=== PATIENT | male | born 1975 | race Caucasian/White ===

== ENCOUNTER 2017-10-30 07:46 | Inpatient (IN) | payer OTHER ==
[~2017-10-30] VITALS: Ht 177.8 cm; Wt 99.2 kg
[2017-10-30] MEDS ORDERED: VERA-7 PO (08:01)
[2017-10-30] MEDS ORDERED: LORazepam 2 MG/ML VIAL IVP ONE ×2 (08:15→14:45)
[2017-10-30] MEDS ORDERED: MAGNESIUM SULFATE 2 GM, MVI, ADULT NO.1 WITH VIT K 10 ML, THIAMINE HCL 100 MG, FOLIC AC... IV ONE ×5 (08:15)
[2017-10-30 08:22] LABS: BASOPHILS % (AUTO) 0.9 % (0.0-2.0); EOSINOPHILS % (AUTO) 2.2 % (1.0-6.0); HEMATOCRIT 39.3 % (41-53); HEMOGLOBIN 14.3 g/dL (13.5-17.5); LYMPHOCYTES # (AUTO) 0.5 K/uL (1.0-4.8); LYMPHOCYTES % (AUTO) 11.3 % (22.0-44.0); MEAN CORPUSCULAR HEMOGLOBIN 34.5 pg (26.0-34.0); MEAN CORPUSCULAR HGB CONC 36.5 G/dL (31.0-37.0); MEAN CORPUSCULAR VOLUME 95 fL (80-100); MONOCYTES # (AUTO) 0.5 K/uL (0.1-1.0); MONOCYTES % (AUTO) 10.1 % (2.0-9.0); NEUTROPHILS # (AUTO) 3.7 K/uL (1.8-7.7); NEUTROPHILS % (AUTO) 75.5 % (40.0-70.0); PLATELET COUNT (AUTO) 36 K/uL (150-450); RED BLOOD CELL COUNT(AUTO) 4.16 MIL/uL (4.50-5.90)
[2017-10-30 08:31] LABS: INR 1.1 (0.9-1.1); PROTHROMBIN TIME 11.3 SEC (9.4-11.6)
[2017-10-30 08:32] LABS: ANION GAP 25 mmol/L (8-16); CALCIUM, TOTAL 8.7 mg/dL (8.8-10.5); CARBON DIOXIDE 18 mmol/L (22-29); CHLORIDE 93 mmol/L (98-107); CREATININE 0.79 mg/dL (0.60-1.30); GLOMERULAR FILTR. RATE CALC > 60 mL/min (>60); GLUCOSE,RANDOM 75 mg/dL (70-110); POTASSIUM 3.2 mmol/L (3.5-5.1); SODIUM SERUM 136 mmol/L (136-145); UREA NITROGEN, BLOOD 8 mg/dL (7-18)
[2017-10-30 08:38] LABS: ALANINE AMINOTRANSFERASE 121 U/L (12-78); ALBUMIN 4.1 g/dL (3.4-5.0); ALKALINE PHOSPHATASE 175 U/L (46-116); ASPARTATE AMINOTRANSFERASE 298 U/L (15-37); BILIRUBIN,TOTAL 2.2 mg/dL (0.1-1.0); TOTAL PROTEIN, SERUM 9.1 g/dL (6.4-8.2)
[2017-10-30] MEDS ORDERED: ONDANSETRON HCL 4 MG/2 ML VIAL IVP ONE ×3 (08:45→16:30)
[2017-10-30] MEDS ORDERED: ChlordiazePOXIDE HCL 25 MG CAPSULE PO ONE (13:00)
[2017-10-30] MEDS ORDERED: METOPROLOL TARTRATE 5 MG/5 ML VIAL IVP ONE (14:45)
[2017-10-30 15:14] LABS: LIPASE 505 U/L (73-393)
[2017-10-30 15:34] LABS: ABG A-A DIFF O2 24.8 mmHg (10-20.0); ABG BASE EXCESS -8.4 mmol/L (-2.0-3.0); ABG CARBOXYHEMOGLOBIN 1.8 % (0.0-1.5); ABG METHEMOGLOBIN 0.4 % (0.0-1.5); ABG OXYGEN CONTENT 18.3 mL/dL (15.0-23.0); ABG OXYGEN SATURATION 96.5 % (95.0-98.0); ABG OXYHEMOGLOBIN 94.4 % (94.0-100.0); ABG PCO2 27 mmHg (35-45); ABG PH 7.397 (7.35-7.450); ABG TOTAL HEMOGLOBIN 13.7 G/dL (12.0-18.0); O2 DEVICE,BLOOD GAS ROOM AIR (ROOM AIR); SITE, BLOOD GAS RT RADIAL; SOURCE, BLOOD GAS ARTERIAL; TEMPERATURE, FAHRENHEIT, BG 98.9 FAHREN (96.0-98.6)
[2017-10-30] MEDS ORDERED: SODIUM CHLORIDE 0.9% 1,000 ML IV ONE (16:30)
[2017-10-30] MEDS ORDERED: BARIUM SULFATE 0.1% SUSPENSION 450 ML BOTTLE PO ONE (16:30)
[2017-10-30] MEDS ORDERED: POTASSIUM CHL 20 MEQ/D5-0.45NS 1,000 ML IV ONE (17:00)
[2017-10-30] MEDS ORDERED: 0.9% SODIUM CHLORIDE 10 ML SYRINGE IVP PRN ×2 (20:15→23:00)
[2017-10-30] MEDS ORDERED: ACETAMINOPHEN 325 MG TABLET PO PRN (20:15)
[2017-10-30] MEDS ORDERED: ONDANSETRON HCL 4 MG/2 ML VIAL IVP PRN (20:15)
[2017-10-30] MEDS ORDERED: POTASSIUM CHLORIDE 10% 40 MEQ/30 ML LIQUID UDCUP PO ONE (20:30)
[2017-10-30] MEDS ORDERED: PANTOPRAZOLE SODIUM 40 MG/VIAL IVP SCH (21:00)
[2017-10-30 21:52] VITALS: BP 142/83
[2017-10-30] MEDS ORDERED: MORPHINE SULFATE 2 MG/ML SYRINGE IVP PRN (23:00)
[2017-10-30] MEDS: ChlordiazePOXIDE HCL 10 MG CAPSULE PO SCH (23:28)
[2017-10-30] MEDS: ZOLPIDEM TARTRATE 5 MG TABLET PO PRN (23:28)
[2017-10-30 23:44] VITALS: BP 130/81
[2017-10-31] MEDS ORDERED: MAGNESIUM SULFATE 2 GM, MVI, ADULT NO.1 WITH VIT K 10 ML, THIAMINE HCL 100 MG, FOLIC AC... IV ONE ×5
[2017-10-31] MEDS: ONDANSETRON HCL 4 MG/2 ML VIAL IVP PRN ×4 (04:29→18:20)
[2017-10-31 05:19] VITALS: BP 146/80
[2017-10-31] MEDS: LORazepam 2 MG/ML VIAL IVP PRN ×3 (05:44→19:25)
[2017-10-31 06:12] LABS: BASOPHILS % (AUTO) 0.8 % (0.0-2.0); EOSINOPHILS % (AUTO) 3.4 % (1.0-6.0); HEMATOCRIT 35.1 % (41-53); HEMOGLOBIN 12.5 g/dL (13.5-17.5); LYMPHOCYTES # (AUTO) 0.3 K/uL (1.0-4.8); LYMPHOCYTES % (AUTO) 10.9 % (22.0-44.0); MEAN CORPUSCULAR HEMOGLOBIN 33.9 pg (26.0-34.0); MEAN CORPUSCULAR HGB CONC 35.5 G/dL (31.0-37.0); MEAN CORPUSCULAR VOLUME 96 fL (80-100); MONOCYTES # (AUTO) 0.4 K/uL (0.1-1.0); MONOCYTES % (AUTO) 14.3 % (2.0-9.0); NEUTROPHILS # (AUTO) 1.8 K/uL (1.8-7.7); NEUTROPHILS % (AUTO) 70.6 % (40.0-70.0); PLATELET COUNT (AUTO) 21 K/uL (150-450); RED BLOOD CELL COUNT(AUTO) 3.67 MIL/uL (4.50-5.90); RED CELL DISTRIBUTION WIDTH 15.4 % (11.5-14.5)
[2017-10-31 06:29] LABS: ANION GAP 17 mmol/L (8-16); CARBON DIOXIDE 21 mmol/L (22-29); CHLORIDE 98 mmol/L (98-107); CREATININE 0.89 mg/dL (0.60-1.30); GLOMERULAR FILTR. RATE CALC > 60 mL/min (>60); GLUCOSE,RANDOM 79 mg/dL (70-110); POTASSIUM 3.4 mmol/L (3.5-5.1); SODIUM SERUM 136 mmol/L (136-145); UREA NITROGEN, BLOOD 8 mg/dL (7-18)
[2017-10-31 07:58] VITALS: BP 135/83
[2017-10-31] MEDS: ChlordiazePOXIDE HCL 10 MG CAPSULE PO SCH ×3 (08:45→23:27)
[2017-10-31] MEDS: VERAPAMIL HCL 240 MG ER TABLET PO SCH (08:45)
[2017-10-31] MEDS: PANTOPRAZOLE SODIUM 40 MG/VIAL IVP SCH (08:46)
[2017-10-31 11:30] VITALS: BP 137/79
[2017-10-31] MEDS ORDERED: POTASSIUM CHLORIDE 20 MEQ ER TABLET PO ONE (14:45)
[2017-10-31 15:22] LABS: AMYLASE 65 U/L (25-115); LIPASE 876 U/L (73-393)
[2017-10-31 15:46] VITALS: BP 133/68
[2017-10-31] MEDS: BACITRACIN/POLYMYXIN B 3.5 GM OPHTHALMIC OINTMENT OD PRN ×2 (16:24→21:06)
[2017-10-31] MEDS: DEXTROSE 5%-0.45% SODIUM CHL 1,000 ML IV SCH ×2 (16:25→23:27)
[2017-10-31 19:50] VITALS: BP 128/68
[2017-10-31] MEDS: ZOLPIDEM TARTRATE 5 MG TABLET PO PRN (23:27)
[2017-11-01] VITALS (7 sets, daily range): BP systolic 113–132; BP diastolic 62–75
[2017-11-01] MEDS: LORazepam 2 MG/ML VIAL IVP PRN ×2 (02:13→10:34)
[2017-11-01] MEDS: BACITRACIN/POLYMYXIN B 3.5 GM OPHTHALMIC OINTMENT OD PRN (02:19)
[2017-11-01] MEDS: ONDANSETRON HCL 4 MG/2 ML VIAL IVP PRN ×3 (05:56→20:42)
[2017-11-01] MEDS: ChlordiazePOXIDE HCL 10 MG CAPSULE PO SCH ×3 (08:51→23:06)
[2017-11-01] MEDS: PANTOPRAZOLE SODIUM 40 MG/VIAL IVP SCH (08:51)
[2017-11-01] MEDS: VERAPAMIL HCL 240 MG ER TABLET PO SCH (08:52)
[2017-11-01] MEDS: DEXTROSE 5%-0.45% SODIUM CHL 1,000 ML IV SCH ×2 (08:55→18:51)
[2017-11-01 15:40] LABS: BASOPHILS % (AUTO) 0.7 % (0.0-2.0); EOSINOPHILS % (AUTO) 2.8 % (1.0-6.0); HEMATOCRIT 37.4 % (41-53); HEMOGLOBIN 13.3 g/dL (13.5-17.5); LYMPHOCYTES # (AUTO) 0.2 K/uL (1.0-4.8); LYMPHOCYTES % (AUTO) 9.9 % (22.0-44.0); MEAN CORPUSCULAR HEMOGLOBIN 33.4 pg (26.0-34.0); MEAN CORPUSCULAR HGB CONC 35.6 G/dL (31.0-37.0); MEAN CORPUSCULAR VOLUME 94 fL (80-100); MONOCYTES # (AUTO) 0.2 K/uL (0.1-1.0); MONOCYTES % (AUTO) 10.1 % (2.0-9.0); NEUTROPHILS # (AUTO) 1.8 K/uL (1.8-7.7); NEUTROPHILS % (AUTO) 76.5 % (40.0-70.0); RED CELL DISTRIBUTION WIDTH 15.2 % (11.5-14.5)
[2017-11-01 15:42] LABS: ANION GAP 11 mmol/L (8-16); CARBON DIOXIDE 25 mmol/L (22-29); CHLORIDE 97 mmol/L (98-107); CREATININE 0.82 mg/dL (0.60-1.30); GLOMERULAR FILTR. RATE CALC > 60 mL/min (>60); GLUCOSE,RANDOM 118 mg/dL (70-110); PLATELET COUNT (AUTO) 19 K/uL (150-450); POTASSIUM 3.2 mmol/L (3.5-5.1); SODIUM SERUM 133 mmol/L (136-145); UREA NITROGEN, BLOOD 3 mg/dL (7-18)
[2017-11-01 15:47] LABS: ALANINE AMINOTRANSFERASE 107 U/L (12-78); ALBUMIN 3.7 g/dL (3.4-5.0); ALKALINE PHOSPHATASE 175 U/L (46-116); ASPARTATE AMINOTRANSFERASE 246 U/L (15-37); BILIRUBIN,TOTAL 2.3 mg/dL (0.1-1.0); TOTAL PROTEIN, SERUM 8.2 g/dL (6.4-8.2)
[2017-11-01 16:07] LABS: PLATELET MORPHOLOGY COMMENT DECREASED
[2017-11-01 16:27] LABS: LIPASE 1423 U/L (73-393)
[2017-11-01] MEDS ORDERED: POTASSIUM CHLORIDE 20 MEQ ER TABLET PO ONE (16:30)
[2017-11-01] MEDS ORDERED: POTASSIUM CHLORIDE 20 MEQ ER TABLET PO PRN (19:15)
[2017-11-01] MEDS ORDERED: SODIUM CHLORIDE 0.9% 250 ML IV ONE (19:37)
[2017-11-01] MEDS: POTASSIUM CHL 10 MEQ/WATER 50 ML IV PRN ×3 (19:40→22:12)
[2017-11-01] MEDS: ZOLPIDEM TARTRATE 5 MG TABLET PO PRN (23:07)
[2017-11-02] MEDS: LORazepam 2 MG/ML VIAL IVP PRN (03:37)
[2017-11-02] MEDS: BACITRACIN/POLYMYXIN B 3.5 GM OPHTHALMIC OINTMENT OD PRN ×2 (03:38→10:58)
[2017-11-02] MEDS: DEXTROSE 5%-0.45% SODIUM CHL 1,000 ML IV SCH ×2 (04:26→12:22)
[2017-11-02 05:17] VITALS: BP 116/65
[2017-11-02 06:51] LABS: BASOPHILS % (AUTO) 0.9 % (0.0-2.0); HEMATOCRIT 35.3 % (41-53); HEMOGLOBIN 12.6 g/dL (13.5-17.5); LYMPHOCYTES # (AUTO) 0.3 K/uL (1.0-4.8); LYMPHOCYTES % (AUTO) 11.9 % (22.0-44.0); MEAN CORPUSCULAR HEMOGLOBIN 33.7 pg (26.0-34.0); MEAN CORPUSCULAR HGB CONC 35.7 G/dL (31.0-37.0); MEAN CORPUSCULAR VOLUME 94 fL (80-100); MONOCYTES # (AUTO) 0.4 K/uL (0.1-1.0); MONOCYTES % (AUTO) 14.2 % (2.0-9.0); NEUTROPHILS # (AUTO) 1.7 K/uL (1.8-7.7); RED BLOOD CELL COUNT(AUTO) 3.74 MIL/uL (4.50-5.90); RED CELL DISTRIBUTION WIDTH 15.2 % (11.5-14.5)
[2017-11-02 07:10] VITALS: BP 105/51
[2017-11-02 07:32] LABS: PLATELET COUNT (AUTO) 24 K/uL (150-450)
[2017-11-02 08:31] LABS: LIPASE 1377 U/L (73-393)
[2017-11-02] MEDS: ChlordiazePOXIDE HCL 10 MG CAPSULE PO SCH (08:45)
[2017-11-02] MEDS: VERAPAMIL HCL 240 MG ER TABLET PO SCH (08:45)
[2017-11-02] MEDS: PANTOPRAZOLE SODIUM 40 MG/VIAL IVP SCH (08:45)
[2017-11-02] MEDS: ONDANSETRON HCL 4 MG/2 ML VIAL IVP PRN (10:52)
[2017-11-02] MEDS: POTASSIUM CHL 10 MEQ/WATER 50 ML IV PRN ×3 (10:52→13:33)
[2017-11-02 11:07] VITALS: BP 104/65
[2017-11-02 11:49] LABS: ALANINE AMINOTRANSFERASE 102 U/L (12-78); ALBUMIN 3.4 g/dL (3.4-5.0); ALKALINE PHOSPHATASE 158 U/L (46-116); ANION GAP 11 mmol/L (8-16); ASPARTATE AMINOTRANSFERASE 220 U/L (15-37); BILIRUBIN,TOTAL 2.1 mg/dL (0.1-1.0); CARBON DIOXIDE 24 mmol/L (22-29); CHLORIDE 100 mmol/L (98-107); CREATININE 0.65 mg/dL (0.60-1.30); GLOMERULAR FILTR. RATE CALC > 60 mL/min (>60); GLUCOSE,RANDOM 101 mg/dL (70-110); POTASSIUM 3.1 mmol/L (3.5-5.1); SODIUM SERUM 135 mmol/L (136-145); TOTAL PROTEIN, SERUM 7.9 g/dL (6.4-8.2); UREA NITROGEN, BLOOD 2 mg/dL (7-18)
== END 2017-11-02 15:10 | disposition home or self-care (01) | DRG 438 ==
LOC: EMS 07:49 → 6N 19:00
PROVIDERS: ADMIT Internal Medicine; ATTEND Internal Medicine
DX: K85.90 Acute pancreatitis without necrosis or infection, unspecified (principal); G93.40 Encephalopathy, unspecified; F10.231 Alcohol dependence with withdrawal delirium; E86.0 Dehydration; E87.6 Hypokalemia; K40.20 Bilateral inguinal hernia, without obstruction or gangrene, not specified as recurrent; K52.9 Noninfective gastroenteritis and colitis, unspecified; K76.0 Fatty (change of) liver, not elsewhere classified; R16.1 Splenomegaly, not elsewhere classified
CPT/HCPCS: 70450; 74177; 76700; 80074; 82805; 83735; 93005; 93041; 96361; 96374; 96375; 96376; 99285; C9113; G0480; J2060; J2270; J2405; J3411; J3475; J3480; J3490; J7030; J7050